=== PATIENT | female | born 1995 ===

== ENCOUNTER 2018-01-03 13:16 | Emergency (ER) | payer MEDICAID ==
[2018-01-03 13:16] VITALS: BMI 24.5
--- NOTE | 2018-01-03 14:54 | ED PDOC ---
HPI: Female Pain Time Seen by Provider: 01/03/18 14:00 Chief Complaint (Nursing): Abdominal Pain Chief Complaint (Provider): Pelvic pain History Per: Patient History/Exam Limitations: no limitations Onset/Duration Of Symptoms: Days (1 month) Additional Complaint(s): Pt. with pelvic pain right for 1 month. Is preg, does not know how far along. No dysuria, weakness, chest pain, vaginal bleeding. Seen at [facility] 1 week ago and had c and US, but could not see anything. Pt. with R migraine, since being preg for 2 months. Not worst in her life. No numbness, tingles, weakness. R arm was burned when cooking turkey Thurs. Putting vasoline on it. Is painful, but no dc. : 0 Past Medical History Reviewed: Nursing Documentation, Vital Signs Vital Signs: Last Vital Signs Temp 98.0 F 01/03/18 13:43 Pulse 73 01/03/18 13:43 Resp 16 01/03/18 13:43 BP 107/66 01/03/18 13:43 Pulse Ox 100 01/03/18 13:43 - Medical History PMH: No Chronic Diseases - Surgical History Surgical History: Cholecystectomy - Family History Family History: States: Unknown Family Hx - Immunization History Hx Tetanus Toxoid Vaccination: Yes Hx Influenza Vaccination: No Hx Pneumococcal Vaccination: No - Home Medications Home Medications: Ambulatory Orders Medication Instructions Recorded No Known Home Med 12/23/17 - Allergies Allergies/Adverse Reactions: Allergies Allergy/AdvReac Type Severity Reaction Status Date / Time No Known Allergies Allergy Verified 01/03/18 13:43 Review of Systems ROS Statement: Except As Marked, All Systems Reviewed And Found Negative Genitourinary Female: Positive for: Pelvic Pain Neurological: Positive for: Headache Physical Exam - Reviewed Nursing Documentation Reviewed: Yes Vital Signs Reviewed: Yes - Physical Exam Appears: Positive for: Non-toxic, No Acute Distress Head Exam: Positive for: ATRAUMATIC, NORMAL INSPECTION, NORMOCEPHALIC Skin: Positive for: Normal Color, Warm, DRY Eye Exam: Positive for: EOMI, Normal appearance, PERRL ENT: Positive for: Normal ENT Inspection Neck: Positive for: Normal, Painless ROM Cardiovascular/Chest: Positive for: Regular Rate, Rhythm Respiratory: Positive for: CNT, Normal Breath Sounds Gastrointestinal/Abdominal: Positive for: Soft, Tenderness (R lower pelvic) Back: Positive for: Normal Inspection. Negative for: L CVA Tenderness, R CVA Tenderness Extremity: Positive for: Normal ROM. Negative for: Tenderness Neurologic/Psych: Positive for: Alert, Oriented - ECG O2 Sat by Pulse Oximetry: 100 Pulse Ox Interpretation: Normal - Progress ED Course And Treament: 1541: Stable. AAOx3. Pain free. Tolerated po. Dr. Quach to fu on labs and imaging. Disposition - Clinical Impression Clinical Impression: Abdominal pain during - Patient ED Disposition Is Patient to be Admitted: Transfer of Care - Disposition Disposition Time: 15:41 Condition: STABLE Patient Signed Over To: Emilia Quach
[2018-01-03] MEDS: Sodium Chloride 0.9% 1,000 ML IV STA (15:40)
[2018-01-03 15:48] LABS: BASO # 0.1 K/uL (0.0-0.2); BASO % 0.8 % (0.0-2.0); EOS % 0.3 % (0.0-4.0); HEMOGLOBIN 14.1 g/dL (12.0-16.0); LYMPH # 1.5 K/uL (1.0-4.3); LYMPH % 21.7 % (20.0-40.0); MEAN CELL VOLUME 91.3 fl (81.0-99.0); MEAN CORPUSCULAR HGB CONC 32.8 g/dL (33.0-37.0); MEAN PLATELET VOLUME 7.1 fl (7.2-11.7); MONO # 0.5 K/uL (0.0-0.8); MONO % 7.3 % (0.0-10.0); NEUT # 4.8 K/uL (1.8-7.0); NEUT % 69.9 % (50.0-75.0); NRBC % 0.1 % (0.0-0.0); RBC 4.72 Mil/uL (3.80-5.20); RED CELL DISTRIBUTION WIDTH 15.7 % (11.5-14.5); WHITE BLOOD COUNT 6.8 K/uL (4.8-10.8)
--- NOTE | 2018-01-03 16:07 | ED PDOC ---
- Laboratory Results Result Diagrams: 01/03/18 15:43 01/03/18 15:43 - ECG O2 Sat by Pulse Oximetry: 100 Medical Decision Making Medical Decision Making: Assumed care from Dr Silvestre. Pending US and labs. 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 Disposition Doctor Will See Patient In The: Office Counseled Patient/Family Regarding: Studies Performed, Diagnosis, Need For Followup - Clinical Impression Clinical Impression: Abdominal pain during , UTI (urinary tract infection), Threatened - POA Present On Arrival: None - Disposition Referrals: [facility] [Outside] [facility] [Outside] Disposition: Routine/Home Disposition Time: 18:20 Condition: GOOD Additional Instructions: MARILIA VALLES, thank you for letting us take care of you today. Your provider was Emilia Quach MD and you were treated for ABD PAIN. The emergency medical care you received today was directed at your acute symptoms. If you were prescribed any medication, please fill it and take as directed. It may take several days for your symptoms to resolve. Return to the Emergency Department if your symptoms worsen, do not improve, or if you have any other problems. Please contact your doctor or call one of the physicians/clinics you have been referred to that are listed on the Patient Visit Information form that is included in your discharge packet. Bring any paperwork you were given at discharge with you along with any medications you are taking to your follow up visit. Our treatment cannot replace ongoing medical care by a primary care provider outside of the emergency department. Thank you for allowing the [facility] team to be part of your care today. If you had an X-Ray or CT scan: A Radiologist will review the ED reading if any change in treatment is needed we will contact you. If you had a blood, urine, or wound culture: It will take several days for the results, if any change in treatment is needed we will contact you. If you had an STI test: It will take 48 hours for the results. Please call after 1 week if you have not heard back. Prescriptions: Nitrofurantoin Macrocrystals [Macrobid] 100 mg PO BID #14 cap Instructions: Urinary Tract Infections in Adults, Threatened Miscarriage (DC) Print Language: ZIMBABWEAN
[2018-01-03 16:13] LABS: ALB/GLOB RATIO 1.3 (1.0-2.1); ALBUMIN 4.9 g/dL (3.5-5.0); ALT/SGPT 27 U/L (9-52); AST/SGOT 25 U/L (14-36); BLOOD UREA NITROGEN 9 mg/dl (7-17); GFR NON-AFRICAN AMERICAN > 60
[2018-01-03 17:24] LABS: SQUAMOUS EPITHIAL 19 /hpf (0-5); URINE BACTERIA RARE (<OCC); URINE BILIRUBIN NEGATIVE (NEGATIVE); URINE BLOOD NEGATIVE (NEGATIVE); URINE CLARITY CLOUDY (Clear); URINE COLOR YELLOW (YELLOW); URINE GLUCOSE (UA) NEG (Normal); URINE LEUKOCYTE ESTERASE NEG Leu/uL (Negative); URINE PROTEIN NEGATIVE (NEGATIVE); URINE UROBILINOGEN 0.2-1.0 mg/dL (0.2-1.0)
--- NOTE | 2018-01-03 17:52 | US ---
Indication: , pain Comparison: None available Technique: Real-time transabdominal pelvic ultrasound was performed. In addition a transvaginal pelvic ultrasound was necessary to better depict pelvic anatomy. Findings: The uterus measures approximately 7.0 x 7.3 x 5.7 cm. Anteverted. Cervix length measures approximately 3.1 cm. Intrauterine gestational sac identified which measures 0.5 cm, out of range for gestational age calculation. 1 mm yolk sac. No evidence of pole at this time. The right ovary measures 3.0 x 1.8 x 1.6 cm. The left ovary measures 3.7 x 1.3 x 1.5 cm. Blood flow is demonstrated. Impression: Intrauterine gestational sac identified which measures approximately 0.5 cm, out of range for gestational age calculation. 1 mm yolk sac. No evidence of pole at this time. Recommend clinical correlation including quantitative beta HCG and close interval follow-up. Advise an anomaly screen at 16-18 weeks gestational age
[2018-01-03 18:59] VITALS: BP 118/67; PULSE 76; RESP 18; TEMP 98
[2018-01-03 21:57] VITALS: O2SAT 100
== END 2018-01-03 18:57 | disposition home or self-care (01) ==
LOC: H.ER 13:16
DX: O20.0 Threatened abortion (principal); O23.40 Unspecified infection of urinary tract in pregnancy, unspecified trimester
CPT/HCPCS: 76817; 80053; 81003; 81025; 84702; 85025; 96374; 99283; J2765; J7030

== ENCOUNTER 2018-01-09 04:52 | Emergency (ER) | payer MEDICAID ==
[2018-01-09 04:52] VITALS: BMI 24.5
[2018-01-09 05:15] VITALS: PULSE 85; RESP 18; O2SAT 98
--- NOTE | 2018-01-09 05:38 | ED PDOC ---
HPI: Female Pain Time Seen by Provider: 01/09/18 05:22 Chief Complaint (Nursing): Female Genitourinary Chief Complaint (Provider): vaginal bleeding History Per: Patient History/Exam Limitations: no limitations Onset/Duration Of Symptoms: Hrs Associated Symptoms: denies: Urinary Symptoms Additional Complaint(s): Shefali Slater is a 22 year old female, with no significant past medical history, who presents to the emergency department complaining of some intermittent vaginal spotting for the past few days. Patient is and EGA approximately x4 weeks. Patient states this episode started after having intercourse. She reports some lower abdominal pain which she describes as mild. She denies any fever, chills or urinary symptoms. No further medical complaints. PMD: None provided. Past Medical History Reviewed: Historical Data, Nursing Documentation, Vital Signs Vital Signs: Last Vital Signs Temp 98.2 F 01/09/18 05:13 Pulse 85 01/09/18 05:13 Resp 18 01/09/18 05:13 BP 100/58 L 01/09/18 05:13 Pulse Ox 98 01/09/18 05:13 - Medical History PMH: No Chronic Diseases - Surgical History Surgical History: Cholecystectomy - Family History Family History: States: Unknown Family Hx - Social History Current smoker - smoking cessation education provided: No Alcohol: None Drugs: Denies - Immunization History Hx Tetanus Toxoid Vaccination: Yes Hx Influenza Vaccination: No Hx Pneumococcal Vaccination: No - Home Medications Home Medications: Ambulatory Orders Medication Instructions Recorded Nitrofurantoin Macrocrystals 100 mg PO BID #14 cap 01/03/18 [Macrobid] - Allergies Allergies/Adverse Reactions: Allergies Allergy/AdvReac Type Severity Reaction Status Date / Time No Known Allergies Allergy Verified 01/09/18 05:12 Review of Systems ROS Statement: Except As Marked, All Systems Reviewed And Found Negative Constitutional: Negative for: Fever, Chills Gastrointestinal: Positive for: Abdominal Pain (mild lower) Genitourinary Female: Positive for: Vaginal Bleeding (spotting). Negative for: Dysuria, Frequency, Incontinence, Hematuria Physical Exam - Reviewed Nursing Documentation Reviewed: Yes Vital Signs Reviewed: Yes - Physical Exam Appears: Positive for: No Acute Distress Head Exam: Positive for: ATRAUMATIC, NORMAL INSPECTION, NORMOCEPHALIC Skin: Positive for: Normal Color, Warm, Dry Eye Exam: Positive for: Normal appearance, EOMI, PERRL Neck: Positive for: Normal, Painless ROM Cardiovascular/Chest: Positive for: Regular Rate, Rhythm. Negative for: Murmur Respiratory: Positive for: Normal Breath Sounds. Negative for: Respiratory Distress Gastrointestinal/Abdominal: Positive for: Normal Exam, Soft. Negative for: Tenderness, Guarding, Rebound Back: Positive for: Normal Inspection. Negative for: L CVA Tenderness, R CVA Tenderness, Vertebral Tenderness Extremity: Positive for: Normal ROM (upper and lower extremities). Negative for: Deformity, Swelling Neurologic/Psych: Positive for: Alert, Oriented - Laboratory Results Result Diagrams: 01/09/18 05:46 - ECG O2 Sat by Pulse Oximetry: 98 (RA) Pulse Ox Interpretation: Normal Medical Decision Making Medical Decision Making: Time: 05:22 Initial Impression: 22 y/o presenting with vaginal bleeding in early . Labs and US ordered. Initial Plan: --Beta-HCG, Quantitative --Urine dipstick --CBC w/ differential --Urinalysis --Transvaginal [US] --Reevaluation 07:00 -Patient will be signed out to Dr. Lieberman pending ultrasound and reevaluation Scribe Attestation: Documented by Chavo Alvarado, acting as a scribe for Flaco Soto MD. Provider Scribe Attestation: All medical record entries made by the Scribe were at my direction and personally dictated by me. I have reviewed the chart and agree that the record accurately reflects my personal performance of the history, physical exam, medical decision making, and the department course for this patient. I have also personally directed, reviewed, and agree with the discharge instructions and disposition. Disposition - Clinical Impression Clinical Impression: Female genitourinary symptoms - Disposition Disposition: Transfer of Care Disposition Time: 07:00 Condition: STABLE Forms: [employer] (Thai)
[2018-01-09 05:49] LABS: BASO # 0.1 K/uL (0.0-0.2); BASO % 0.9 % (0.0-2.0); EOS % 0.3 % (0.0-4.0); HEMOGLOBIN 12.7 g/dL (12.0-16.0); LYMPH # 1.9 K/uL (1.0-4.3); LYMPH % 30.8 % (20.0-40.0); MEAN CELL VOLUME 91.2 fl (81.0-99.0); MEAN CORPUSCULAR HEMOGLOBIN 30.3 pg (27.0-31.0); MEAN CORPUSCULAR HGB CONC 33.2 g/dL (33.0-37.0); MEAN PLATELET VOLUME 6.9 fl (7.2-11.7); MONO # 0.5 K/uL (0.0-0.8); MONO % 8.7 % (0.0-10.0); NEUT # 3.6 K/uL (1.8-7.0); NEUT % 59.3 % (50.0-75.0); NRBC % 0.1 % (0.0-0.0); RBC 4.2 Mil/uL (3.80-5.20); RED CELL DISTRIBUTION WIDTH 15.6 % (11.5-14.5); WHITE BLOOD COUNT 6.1 K/uL (4.8-10.8)
[2018-01-09 06:08] LABS: SQUAMOUS EPITHIAL 2 /hpf (0-5); URINE BACTERIA RARE (<OCC); URINE BILIRUBIN NEGATIVE (NEGATIVE); URINE BLOOD SMALL (NEGATIVE); URINE CLARITY CLOUDY (Clear); URINE COLOR YELLOW (YELLOW); URINE GLUCOSE (UA) NEG (Normal); URINE LEUKOCYTE ESTERASE TRACE Leu/uL (Negative); URINE PROTEIN NEGATIVE (NEGATIVE); URINE UROBILINOGEN 0.2-1.0 mg/dL (0.2-1.0)
--- NOTE | 2018-01-09 07:39 | ED PDOC ---
- Laboratory Results Result Diagrams: 01/09/18 05:46 - ECG O2 Sat by Pulse Oximetry: 98 (RA) Pulse Ox Interpretation: Normal Medical Decision Making Medical Decision Making: Time: 0700 Patient endorsed to provider by Dr. Soto, pending ultrasound. Time:1056 PROCEDURE: OB Pelvic Ultrasound HISTORY: vag bld in preg LMP: Not provided COMPARISON: None available. FINDINGS: UTERUS: Gestational sac: 13 mm, equivalent to 5 weeks 4 days gestational age [place]-rump length 4 mm equal to 6 weeks 0 days Heart rate: 105 bpm. age (Ultrasound estimated): 5 weeks 6 days [place]-gestational hemorrhage: None Date of delivery (Ultrasound estimated) : 09/05/2018 Uterus measures 7.7 x 6.9 x 4.6 cm. Normal in size and appearance. CERVIX: Long and closed RIGHT OVARY: Measures 2.4 x 2.4 x 1.6 cm. No mass lesion. Normal flow. LEFT OVARY: Measures 3.9 x 3.3 x 1.7 cm. No solid mass. Normal flow. Incidentally noted corpus luteum FREE FLUID: None. OTHER FINDINGS: None. IMPRESSION: Single live intrauterine gestation of approximately 5 weeks 6 days gestational age. No subchorionic hemorrhage. heart rate 105 beats per minute. Left ovarian corpus luteum. Otherwise unremarkable. pt aparently walked out of the ER prior to getting these results of the US. she told the nurse she had to leave. but i never spoke to her/gave her results. ----- Scribe Attestation: Documented by Jannie Harmon, acting as a scribe for Alicia Lieberman MD. Provider Scribe Attestation: All medical record entries made by the Scribe were at my direction and personally dictated by me. I have reviewed the chart and agree that the record accurately reflects my personal performance of the history, physical exam, medical decision making, and the department course for this patient. I have also personally directed, reviewed, and agree with the discharge instructions and disposition. Disposition - Clinical Impression Clinical Impression: Female genitourinary symptoms - POA Present On Arrival: None - Disposition Disposition: Routine/Home Disposition Time: 10:45 Condition: UNKNOWN Forms: [employer] (Georgian)
[2018-01-09 08:33] VITALS: BP 106/62; TEMP 98.9
--- NOTE | 2018-01-09 11:00 | US ---
Date of service: 01/09/2018 PROCEDURE: OB Pelvic Ultrasound HISTORY: vag bld in preg LMP: Not provided COMPARISON: None available. FINDINGS: UTERUS: Gestational sac: 13 mm, equivalent to 5 weeks 4 days gestational age [place]-rump length 4 mm equal to 6 weeks 0 days Heart rate: 105 bpm. age (Ultrasound estimated): 5 weeks 6 days [place]-gestational hemorrhage: None Date of delivery (Ultrasound estimated) : 09/05/2018 Uterus measures 7.7 x 6.9 x 4.6 cm. Normal in size and appearance. CERVIX: Long and closed RIGHT OVARY: Measures 2.4 x 2.4 x 1.6 cm. No mass lesion. Normal flow. LEFT OVARY: Measures 3.9 x 3.3 x 1.7 cm. No solid mass. Normal flow. Incidentally noted corpus luteum FREE FLUID: None. OTHER FINDINGS: None. IMPRESSION: Single live intrauterine gestation of approximately 5 weeks 6 days gestational age. No subchorionic hemorrhage. heart rate 105 beats per minute. Left ovarian corpus luteum. Otherwise unremarkable.
== END 2018-01-09 08:33 | disposition home or self-care (01) ==
LOC: H.ER 04:52
DX: O20.9 Hemorrhage in early pregnancy, unspecified (principal); Z3A.01 Less than 8 weeks gestation of pregnancy

== ENCOUNTER 2018-02-07 10:38 | Emergency (ER) | payer MEDICAID ==
[2018-02-07 10:38] VITALS: BMI 24.5
[2018-02-07] MEDS ORDERED: Potassium Chl 40 mEq in D5-1/2 1,000 ML IV SCH (11:15)
[2018-02-07] MEDS ORDERED: Potassium Ch 20mEq in D5-1/2NS 1,000 ML IV SCH (11:30)
--- NOTE | 2018-02-07 11:32 | ED PDOC ---
HPI: Abdomen Time Seen by Provider: 02/07/18 11:05 Chief Complaint (Nursing): Abdominal Pain Chief Complaint (Provider): Abdominal Pain History Per: Patient History/Exam Limitations: no limitations Onset/Duration Of Symptoms: Days (2-3) Current Symptoms Are (Timing): Still Present Additional Complaint(s): 22 year old female, at 10 weeks in , presents to the ED with complaints of "nonstop" nonbloody, nonbilious vomiting for 2-3 days. She reports that she cannot "keep liquids down at all", subsequently, developing lower abdominal cramping. Patient denies any fever, chills, vaginal bleed or discharge. PCP: none provided Past Medical History Reviewed: Historical Data, Nursing Documentation, Vital Signs Vital Signs: Last Vital Signs Temp 97.9 F 02/07/18 10:52 Pulse 85 02/07/18 10:52 Resp 16 02/07/18 10:52 BP 110/70 02/07/18 10:52 Pulse Ox 100 02/07/18 10:52 - Medical History PMH: No Chronic Diseases - Surgical History Surgical History: Cholecystectomy - Family History Family History: States: Unknown Family Hx - Immunization History Hx Tetanus Toxoid Vaccination: Yes Hx Influenza Vaccination: No Hx Pneumococcal Vaccination: No - Home Medications Home Medications: Ambulatory Orders Medication Instructions Recorded Nitrofurantoin Macrocrystals 100 mg PO BID #14 cap 01/03/18 [Macrobid] Doxylamine/Pyridoxine HCl (B6) 1 each PO DAILY #20 tablet. 02/07/18 [Tristin Saez 10-10 mg Tablet] - Allergies Allergies/Adverse Reactions: Allergies Allergy/AdvReac Type Severity Reaction Status Date / Time No Known Allergies Allergy Verified 01/09/18 05:12 Review of Systems ROS Statement: Except As Marked, All Systems Reviewed And Found Negative Constitutional: Negative for: Fever, Chills Gastrointestinal: Positive for: Vomiting (NBNB), Abdominal Pain (lower with cramps), Other (decreased PO intake) Genitourinary Female: Negative for: Vaginal Discharge, Vaginal Bleeding Physical Exam - Reviewed Nursing Documentation Reviewed: Yes Vital Signs Reviewed: Yes - Physical Exam Appears: Positive for: Well, No Acute Distress Head Exam: Positive for: ATRAUMATIC, NORMAL INSPECTION, NORMOCEPHALIC Skin: Positive for: Normal Color Eye Exam: Positive for: Normal appearance ENT: Positive for: Normal ENT Inspection Neck: Positive for: Normal Cardiovascular/Chest: Positive for: Regular Rate, Rhythm Respiratory: Positive for: Normal Breath Sounds Gastrointestinal/Abdominal: Positive for: Soft, Tenderness (suprapubic and right-sided to palpation). Negative for: Guarding, Rebound Back: Positive for: Normal Inspection. Negative for: L CVA Tenderness, R CVA Tenderness Extremity: Positive for: Normal ROM (upper/lower) Neurologic/Psych: Positive for: Alert, Oriented - Laboratory Results Result Diagrams: 02/07/18 11:35 02/07/18 11:35 - ECG O2 Sat by Pulse Oximetry: 100 (RA) Pulse Ox Interpretation: Normal Medical Decision Making Medical Decision Making: Time: 1114 Initial Plan: Well-appearing female with hyperemesis gravidarum. No concern for appendicitis. Will hydrate patient. US ordered with plan to re-eval. * Labs * Potassium Chl 1000ml IV per 150mls/hr * Reglan 10mg IVPB * Tylenol 650mg PO * US OB /transvaginal 130PM --PAtient is appearing much improved, no longer vomiting, tolerating PO --Advised to followup with OB in 2 - 3 days --Well appearing with normal vitals upon discahrge Scribe Attestation: Documented by Patricia Campbell, acting as a scribe for Mart Bailon MD. Provider Scribe Attestation: All medical record entries made by the Scribe were at my direction and personally dictated by me. I have reviewed the chart and agree that the record accurately reflects my personal performance of the history, physical exam, medical decision making, and the department course for this patient. I have also personally directed, reviewed, and agree with the discharge instructions and disposition. Disposition - Clinical Impression Clinical Impression: Hyperemesis gravidarum - Disposition [facility] Disposition: Routine/Home Disposition Time: 13:30 Condition: STABLE Prescriptions: Doxylamine/Pyridoxine HCl (B6) [Tristin Saez 10-10 mg Tablet] 1 each PO DAILY #20 tablet. Instructions: Hyperemesis Gravidarum Forms: [employer] (Sao Tomean)
[2018-02-07 12:00] LABS: BLOOD UREA NITROGEN 8 mg/dl (7-17); CALCIUM 8.9 mg/dL (8.4-10.2); GFR NON-AFRICAN AMERICAN > 60
[2018-02-07 12:02] LABS: BASO % 0.3 % (0.0-2.0); EOS % 0.5 % (0.0-4.0); HEMOGLOBIN 13.3 g/dL (12.0-16.0); LYMPH # 1.4 K/uL (1.0-4.3); LYMPH % 23.4 % (20.0-40.0); MEAN CELL VOLUME 93.9 fl (81.0-99.0); MEAN CORPUSCULAR HEMOGLOBIN 30.9 pg (27.0-31.0); MEAN CORPUSCULAR HGB CONC 32.9 g/dL (33.0-37.0); MEAN PLATELET VOLUME 7.2 fl (7.2-11.7); MONO # 0.4 K/uL (0.0-0.8); MONO % 6.8 % (0.0-10.0); NRBC % 0.1 % (0.0-0.0); RBC 4.31 Mil/uL (3.80-5.20); RED CELL DISTRIBUTION WIDTH 14.1 % (11.5-14.5); WHITE BLOOD COUNT 5.8 K/uL (4.8-10.8)
[2018-02-07 14:01] VITALS: BP 120/78; PULSE 78; RESP 19; TEMP 97.5; O2SAT 98
--- NOTE | 2018-02-08 12:03 | US ---
Date of service: 02/07/2018 PROCEDURE: OB Pelvic Ultrasound HISTORY: 10wks preg, hyperemesis COMPARISON: None available. FINDINGS: UTERUS: Single Live intrauterine gestation. CRL measures 3.36 cm equivalent to 10 weeks and 2 days of gestational age. Gestational sac diameter measures 4.86 cm corresponding to 10 weeks and 4 days of gestational age. age (Ultrasound estimated): 10 weeks and 3 days Date of delivery (Ultrasound estimated) : 09/02/2018 Heart rate: 167 bpm. [place]-gestational hemorrhage: None. Uterus measures 11.5 x 9.3 x 6.7 cm. No mass CERVIX: Long and closed. No cervical abnormality seen. RIGHT OVARY: Measures 4.1 x 2.8 x 1.7 cm. No mass. Normal flow. LEFT OVARY: Measures 3.8 x 2.0 x 2.4 cm. No mass. Normal flow. FREE FLUID: None. OTHER FINDINGS: None. IMPRESSION: Single live intrauterine gestation with mean gestational age of 10 weeks and 3 days. The estimated date of delivery by ultrasound is 09/02/2018. The ultrasound dates correspond with the clinical dates. A preliminary report was provided by [employer].
== END 2018-02-07 14:04 | disposition home or self-care (01) ==
LOC: H.ER 10:38
DX: O21.0 Mild hyperemesis gravidarum (principal); Z3A.10 10 weeks gestation of pregnancy
CPT/HCPCS: 76817; 80048; 84702; 85025; 99283; J2765

== ENCOUNTER 2018-03-16 02:23 | Emergency (ER) | payer MEDICAID ==
[2018-03-16 02:24] VITALS: BMI 24.5
[2018-03-16 02:47] VITALS: BP 91/55; PULSE 78; RESP 16; TEMP 97.8; O2SAT 99
== END 2018-03-16 03:43 | disposition left against medical advice (07) ==
LOC: H.ER 02:23
DX: Z02.89 Encounter for other administrative examinations (principal)

== ENCOUNTER 2018-04-20 14:33 | Emergency (ER) | payer MEDICAID ==
[2018-04-20 15:21] VITALS: BMI 26.6
[2018-04-20] MEDS: Lactated Ringer's 1,000 ML IV SCH ×3 (15:43→18:37)
[2018-04-20 16:43] LABS: BASO % 0.4 % (0.0-2.0); EOS % 0.1 % (0.0-4.0); HEMOGLOBIN 12.9 g/dL (12.0-16.0); LYMPH # 1.2 K/uL (1.0-4.3); LYMPH % 13.4 % (20.0-40.0); MEAN CELL VOLUME 93.6 fl (81.0-99.0); MEAN CORPUSCULAR HEMOGLOBIN 31.4 pg (27.0-31.0); MEAN CORPUSCULAR HGB CONC 33.6 g/dL (33.0-37.0); MEAN PLATELET VOLUME 8.1 fl (7.2-11.7); MONO # 0.5 K/uL (0.0-0.8); MONO % 5.5 % (0.0-10.0); NEUT # 7.4 K/uL (1.8-7.0); NEUT % 80.6 % (50.0-75.0); RBC 4.09 Mil/uL (3.80-5.20); RED CELL DISTRIBUTION WIDTH 14.3 % (11.5-14.5); WHITE BLOOD COUNT 9.2 K/uL (4.8-10.8)
[2018-04-20] MEDS ORDERED: Lactated Ringer's 1,000 ML IV SCH (17:45)
[2018-04-20] MEDS ORDERED: Lactated Ringer's 1,000 ML IV ONE (19:30)
--- NOTE | 2018-04-20 19:46 | OBDCSUM ---
Datetime: 04/20/2018 19:36 Discharged to, Provider: Home Follow up at, Provider: Primary Care Provider Disch Instr Activity: Normal activity Disch Instr Diet: Regular Discharge Time: 04/20/2018 19:36 Follow up in weeks, Provider: April 26, 2018 Disch Referrals: None Discharge Diagnosis Prov Other: Nausea and vomiting at 20+ weeks
[2018-04-21 00:18] VITALS: BP 109/61; PULSE 73; RESP 20; TEMP 98.2; O2SAT 99
== END 2018-04-20 19:36 | disposition home or self-care (01) ==
LOC: H.EROB2 14:33
DX: O21.0 Mild hyperemesis gravidarum (principal); Z3A.20 20 weeks gestation of pregnancy; O09.292 Supervision of pregnancy with other poor reproductive or obstetric history, second trimester
CPT/HCPCS: 85025; 96374; 96375; 99283; J2405; J7120

== ENCOUNTER 2018-05-27 10:17 | Emergency (ER) | payer MEDICAID ==
--- NOTE | 2018-05-27 10:26 | OBHP ---
Datetime: 04/20/2018 15:47 IP Adm Impression: , intrauterine IP Chief Complaint Other: Nausea and vomiting IP Admit Plan: Observation/Evaluation; Discharge home Admit Comment, IP Provider: Pt is a 22 y/o F EGA of 20.5 wk KATIE 09/02/18 LMP 11/26/17 no sam rds with her. Patient reports she has been experiencing nausea and yellow vomiting 10x yesterday and 3-4 times today, no sick contacts, no known food poisoning, symptoms have been preventing her from ke eping water or food down, reports headache, pain behind eyes. Pt reports she went to [facility] on 04/18/17 and was diagnosed with UTI was prescribed macrobid, asymptomatic, denies dysuria, or frequenc y, has not picked up the medicine yet. Denies vaginal bleeding, contractions, or LOF. Reports good fe donna movement. Denies fever, chills, blurry vision, SOB, chest pain, dizziness, diarrhea or constipati on. All other systems reviewed and negative Provider: Dante Roa PMHx: GERD Meds: PNV FMHx: Grandparents DM, HTN, no hx of DM or HTN in Allergies: NKDA SurgHx: :L breast tumor removed 2011, Cholecystectomy 2014 SOCHx: Denies EthOH, tobacco, or drug use OBGYN: No hx of STD's No complications with , Last pap 2 weeks ago reports normal 1 spontaneous 20wks 2014 2 2015, 2016 Labs: reports wnl, no records with her Assessment Pt is a 22 y/o F EGA of 20.5 wks here due to nausea and vomiting 10x yesterday and 3-4 jonathan es today Plan: -Observe in [facility]AD -IVF's, IV Pepcid -CBC w. diff -Monitor VS- BP 109/57 -Monitor FHR tocometer 140's -Advance to clears as tolerated Case reviewed and discussed with Dr. Liliana Guzman PGY1 OB Hospitalist Addendum: Pt seen by me. Agree w/ above. 22 yo at 20+5 wks w/ vomiting si nce yesterday, denies diarrhes, denies sick contacts. Nl WBC. Nl hgb. Pt given IVF, IV pepcid and IV zofran. Pt tolerating melissa dre and a sandwich. Pt discharged home w/ precautions, told to rest and po hydrate. Pt has a f/o appoint at [facility] on 04/26/2018.(ES) Extremities - PN: Normal Abdomen - PN: Normal Lungs - PN: Normal Heart - PN: Normal HEENT - PN: Normal General - PN: Normal FHR - Baseline A Provider: 140's Comments, ACOG Physical Exam: GEN: Lying in bed NAD HEENT: NCAT CARD: RRR + S1S2 RESP: CTA, no wheezing, rales or rhonchi GI: Gravid, + BS, nontender to palpation, no rebound, no guarding, no rigidity Back- R CVA tenderness EXT: no edema Monitor FHR tocometer 140's IP Hx Assessment: The History has been Reviewed and is Current EGA AdmitDate IP: 20.5 Vital Signs Provider: Reviewed; Within Normal Limits IP Chief Complaint: Maternal discomfort
[2018-05-27 10:56] VITALS: BMI 26.4
[2018-05-27] MEDS ORDERED: Alum-Mag Hydrox-Simethicone Susp (30 mL) PO ONE (10:56)
[2018-05-27] MEDS ORDERED: Lactated Ringer's 1,000 ML IV SCH (11:15)
[2018-05-27 11:31] LABS: BASO % 0.5 % (0.0-2.0); EOS % 0.2 % (0.0-4.0); LYMPH % 10.2 % (20.0-40.0); MEAN CELL VOLUME 94.4 fl (81.0-99.0); MEAN CORPUSCULAR HEMOGLOBIN 31.5 pg (27.0-31.0); MEAN CORPUSCULAR HGB CONC 33.4 g/dL (33.0-37.0); MEAN PLATELET VOLUME 7.5 fl (7.2-11.7); MONO # 0.4 K/uL (0.0-0.8); MONO % 4.6 % (0.0-10.0); NEUT % 84.5 % (50.0-75.0); NRBC % 0.1 % (0.0-0.0); RBC 4.14 Mil/uL (3.80-5.20); RED CELL DISTRIBUTION WIDTH 13.5 % (11.5-14.5); WHITE BLOOD COUNT 9.4 K/uL (4.8-10.8)
[2018-05-27 11:40] LABS: SQUAMOUS EPITHIAL 4 /hpf (0-5); URINE BACTERIA RARE (<OCC); URINE BILIRUBIN NEGATIVE (NEGATIVE); URINE BLOOD NEGATIVE (NEGATIVE); URINE CLARITY CLOUDY (Clear); URINE COLOR YELLOW (YELLOW); URINE GLUCOSE (UA) NEG (NEGATIVE); URINE LEUKOCYTE ESTERASE NEG Leu/uL (Negative); URINE PROTEIN NEGATIVE (NEGATIVE); URINE UROBILINOGEN 0.2-1.0 mg/dL (0.2-1.0)
[2018-05-27 11:41] LABS: ALB/GLOB RATIO 1.2 (1.0-2.1); ALBUMIN 3.9 g/dL (3.5-5.0); ALT/SGPT 19 U/L (9-52); AMYLASE 108 U/L (30-110); AST/SGOT 19 U/L (14-36); BLOOD UREA NITROGEN 6 mg/dl (7-17); CALCIUM 8.6 mg/dL (8.4-10.2); GFR NON-AFRICAN AMERICAN > 60; LIPASE 86 U/L (23-300)
[2018-05-27 22:47] VITALS: BP 109/53; PULSE 67; RESP 20; TEMP 97.7; O2SAT 100
== END 2018-05-27 13:45 | disposition home or self-care (01) ==
LOC: H.EROB2 10:17 → H.EROB 10:34 → H.EROB2 13:45
DX: O21.0 Mild hyperemesis gravidarum (principal); Z3A.20 20 weeks gestation of pregnancy; Z23 Encounter for immunization
CPT/HCPCS: 80053; 81003; 82150; 83690; 85025; 99281; J7120